=== PATIENT | male | born 1955 | race Caucasian/White ===

== ENCOUNTER → 2017-10-11 10:53 | Outpatient (CLI) | payer OTHER, SELFPAY ==
--- NOTE | 2017-10-11 | DI.RAD.S_ITS ---
PROCEDURE: XR RIBS RT MIN 3V W CXR 1V INDICATIONS: RIGHT SIDED RIB PAIN, FRACTURE OF RIB TECHNIQUE: 3 views of the right ribs were acquired, along with a single view chest. COMPARISON: None. FINDINGS: Surgical changes and devices: None. Bones and chest wall: No fractures or dislocations. No suspicious bony lesions. Overlying soft tissues appear unremarkable. A metallic marker was placed over the right chest in area of maximal tenderness to assist in localizing region of maximal clinical concern. Lungs and pleura: No pleural effusions or pneumothorax. Lungs appear clear. Mediastinum: Mediastinal contours appear normal. Heart size is normal. IMPRESSION: A fracture is not seen, no pneumothorax is present and no pleural effusion is identified. A nondisplaced acute rib fracture may not be identified on the initial chest plain films. Followup assessment by repeat plain film imaging may become necessary to give unusual symptoms persist. Dictated by: Aidan Calvillo M.D. on 10/11/2017 at 13:15 Approved by: Aidan Calvillo M.D. on 10/11/2017 at 13:33
== END ==
PROVIDERS: Visit Provider Internal Medicine Gastroenterology
DX: S22.31XA Fracture of one rib, right side, initial encounter for closed fracture (principal); R07.81 Pleurodynia
CPT/HCPCS: 71101

== ENCOUNTER → 2019-12-07 09:04 | Outpatient (CLI) | payer OTHER, SELFPAY ==
--- NOTE | 2019-12-07 | DI.MRI.S_ITS ---
PROCEDURE: MR LUMBAR SPINE WO CON INDICATIONS: Lumbago with sciatica, unspecified side TECHNIQUE: Noncontrast sagittal T1 spin echo and T2 fast echo, sagittal STIR, axial T1 and T2 fast spin echo through the lumbar spine. In cases with scoliosis, additional coronal T2 fast spin echo may be performed. COMPARISON: None. FINDINGS: Image quality: Excellent. Alignment and Curvature: There is normal bony alignment. Bone Marrow: Marrow is of normal overall signal. No acute vertebral body compression fractures. Spinal Cord: Conus medullaris terminates at the T12-L1 level. Visualized cord demonstrates normal signal and size. Paraspinous Soft Tissues: No paravertebral masses. L1-L2: Normal appearance. L2-L3: Normal appearance. L3-L4: Mild circumferential disc bulge with preserved disc height and disc signal. Moderate right facet arthropathy. No central canal or foraminal stenosis. L4-L5: Preserved disc height and disc signal. There is mild posterior disc bulge. There is right posterior paramedian disc extrusion with an extruding disc measuring 5 mm AP, 8 mm transverse and 9 mm cephalocaudal. A small annular fissure is present posterior centrally. The central canal is mildly narrowed. There is severe narrowing of the right lateral recess and impingement of right S1 nerve root. No subarticular foraminal stenosis. L5-S1: Normal appearance. IMPRESSION: 1. There is right paramedian protruding disc fragment is seen at L4-L5, causing severe narrowing of the right lateral recess and right S1 nerve root impingement. A small annular fissure is also present at L4-L5. 2. Mild central canal stenosis at L4-L5. 3. No significant subarticular foraminal stenosis. Dictated by: Loco Garcia M.D. on 12/07/2019 at 10:05 Approved by: Loco Garcia M.D. on 12/07/2019 at 10:14
== END ==
PROVIDERS: Referring Provider Internal Medicine Gastroenterology; Visit Provider Internal Medicine Gastroenterology
DX: M54.40 Lumbago with sciatica, unspecified side (principal); M48.061 Spinal stenosis, lumbar region without neurogenic claudication
CPT/HCPCS: 72148

== ENCOUNTER → 2022-03-10 18:23 | Outpatient (CLI) | payer SELFPAY | PROVIDERS: Referring Provider Internal Medicine; Visit Provider Internal Medicine | DX: Z23 Encounter for immunization (principal) | CPT/HCPCS: 90471; 90686 ==

== ENCOUNTER → 2022-12-15 07:55 | Outpatient (CLI) | payer OTHER, SELFPAY ==
[2022-12-15 09:47] LABS: Basophils Absolute Auto 0 /uL (0-100); Basophils Percent Auto 0.8 % (0-2); Eosinophils Absolute Auto 100 /uL (0-450); Eosinophils Percent Auto 1.8 % (2-4); Hematocrit 42.3 % (41-53); Hemoglobin 14.9 g/dL (13.5-17.5); Lymphocytes Absolute Auto 2300 /uL (1100-4500); Lymphocytes Percent Auto 40.5 % (25-40); Mean Corpuscular HGB Conc 35.3 % (30-36); Mean Corpuscular Hemoglobin 32.7 PG (26-34); Mean Corpuscular Volume 92.6 fL (80-100); Monocytes Absolute Auto 600 /uL (0-900); Monocytes Percent Auto 9.9 % (3-14); Neutrophils Absolute Auto 2700 /uL (1500-7000); Red Blood Cell Count 4.57 X10^6/uL (4.5-5.9); Red Cell Distribution Width 12.5 % (11.6-14.8); White Blood Cell Count 5.7 X10^3/uL (4.5-11.0)
[2022-12-15 09:53] LABS: Alanine Aminotransferase 24 IU/L (<50); Albumin 4.4 g/dL (3.5-5.0); Albumin Globulin Ratio 1.4 (1.0-2.8); Alkaline Phosphatase 74 U/L (38-126); Aspartate Aminotransferase 28 IU/L (17-59); BUN Creatinine Ratio 21.3 (6-22); Bilirubin Total 0.7 mg/dL (0.2-1.3); Blood Urea Nitrogen 23 mg/dL (9-20); Calcium 9.3 mg/dL (8.4-10.2); Carbon Dioxide 25 mmol/L (22-32); Chloride 102 mmol/L (98-107); Estimated Glomerular Filt Rate > 60 mL/min (>60); Globulin 3.2 g/dL (1.7-4.1); Glucose 107 mg/dL (80-110); HEMOLYSIS 23 (0-50); Potassium 3.9 mmol/L (3.4-5.1); Sodium 138 mmol/L (137-145); Total Protein 7.6 g/dL (6.3-8.2)
[2022-12-15 10:20] LABS: Add Manual Diff / Slide Review SLIDE REVIEW
[2022-12-15 10:23] LABS: Prostate Specific Antigen 3.31 ng/mL (0.10-4.00)
[2022-12-15 10:24] LABS: Thyroid Stimulating Hormone 1.92 uIU/mL (0.47-4.68)
[2022-12-15 11:01] LABS: RBC Morphology Norm
[2022-12-15 11:03] LABS: Platelet Count 205 X10^3/uL (150-400)
[2022-12-23 08:39] LABS: Percent Free Testosterone 1.83 % (1.50-4.20); Testosterone Free 7.37 ng/dL (5.00-21.00)
== END ==
PROVIDERS: Referring Provider Internal Medicine Gastroenterology; Visit Provider Internal Medicine Gastroenterology
DX: Z00.00 Encounter for general adult medical examination without abnormal findings (principal)
CPT/HCPCS: 36415; 80053; 84153; 84402; 84403; 84443; 85025